=== PATIENT | female | born 1955 | race Caucasian/White ===

== ENCOUNTER 2016-05-11 10:54 | Inpatient (IN) | payer OTHER, MEDICARE ==
[~2016-05-11] VITALS: Ht 162.6 cm; Wt 64.9 kg
[2016-05-11] MEDS ORDERED: BUSP5TAB PO (14:42)
[2016-05-11] MEDS ORDERED: ATOR1TAB18 PO (14:42)
[2016-05-11] MEDS ORDERED: CLOP75TA PO (14:43)
[2016-05-11] MEDS ORDERED: CITA20TA4 PO (14:43)
[2016-05-11] MEDS ORDERED: HYDR25TA5 PO (14:45)
[2016-05-11] MEDS ORDERED: META48.54 PO (14:45)
[2016-05-11] MEDS ORDERED: MIRA33504 PO (14:45)
[2016-05-11] MEDS ORDERED: METO50TA PO (14:45)
[2016-05-11] MEDS ORDERED: PANT40TA3 PO (14:45)
[2016-05-15] MEDS ORDERED: METOPROLOL TARTRATE 25 MG TAB PO PRN (06:00)
[2016-05-15] MEDS ORDERED: LACTATED RINGER'S 1000 ML IV SCH (06:00)
[2016-05-15] MEDS ORDERED: INSULIN HUMAN REGULAR 1,000 UNITS/10 ML VIAL SQ PRN (06:00)
[2016-05-15] MEDS ORDERED: ceFAZolin 1,000 MG/NS 100 ML IV SCH ×2 (06:00)
[2016-05-15] MEDS ORDERED: SODIUM CHLORID 0.9% 500 ML IV SCH (06:00)
[2016-05-15 06:19] LABS: AUTOMATED NEUTROPHIL # 6.5 TH/MM3 (1.8-7.7); BASOPHIL % 0.5 % (0.0-2.0); EOSINOPHIL # 0.1 TH/MM3 (0-0.4); EOSINOPHIL % 1.2 % (0.0-4.0); HEMATOCRIT 40.3 % (35.0-46.0); HEMO FLAGS DIFF FINAL; LYMPH % 21.9 % (9.0-44.0); LYMPHOCYTE # 2.1 TH/MM3 (1.0-4.8); MEAN CELL VOLUME 92.7 FL (80.0-100.0); MEAN CORPUSCULAR HGB CONC 34.5 % (32.0-36.0); MONO % 8.1 % (0.0-8.0); NEUT % 68.3 % (16.0-70.0); PLATELET COUNT 274 TH/MM3 (150-450); RED BLOOD COUNT 4.34 MIL/MM3 (4.00-5.30); RED CELL DISTRIBUTION WIDTH 14.2 % (11.6-17.2); WHITE BLOOD COUNT 9.5 TH/MM3 (4.0-11.0)
[2016-05-15 06:25] VITALS: BP 147/61; PULSE 56; RESP 20; TEMP 98.1; O2SAT 98
[2016-05-15 06:31] LABS: BICARBONATE 31.1 MEQ/L (21.0-32.0); POTASSIUM 3.5 MEQ/L (3.5-5.1)
[2016-05-15 06:46] LABS: APTT (PATIENT) 26.7 SEC (24.3-30.1); INTERNATIONAL NORMALIZED RATIO 0.9 RATIO
[2016-05-15] MEDS ORDERED: HEPARIN SODIUM - IV 10,000 UNITS/10 ML VIAL ONE (07:42)
[2016-05-15] MEDS ORDERED: HEPARIN SODIUM - SQ 10,000 UNITS/ML VIAL ONE (07:42)
[2016-05-15] MEDS ORDERED: PROTAMINE SULFATE 50 MG/5 ML VIAL ONE (07:42)
[2016-05-15] MEDS ORDERED: VANCOMYCIN HCL 1000 MG VIAL ONE (07:51)
[2016-05-15] MEDS ORDERED: SODIUM CHLOR 0.9% 250 ML INJ 250 ML ONE (07:51)
[2016-05-15] MEDS ORDERED: VANCOMYCIN 500 MG VIAL ONE (07:51)
[2016-05-15] MEDS ORDERED: MIDAZOLAM HCL 2 MG/2 ML VIAL ONE (08:19)
[2016-05-15] MEDS ORDERED: ACETAMINOPHEN 1000 MG/100 ML VIAL IV ONE (08:19)
[2016-05-15] MEDS ORDERED: FAMOTIDINE 20 MG/2 ML VIAL ONE (08:19)
[2016-05-15] MEDS ORDERED: fentaNYL CITRATE 250 MCG/5 ML AMP ONE (08:19)
[2016-05-15] MEDS ORDERED: DICLOFENAC SODIUM 37.5 MG/ML VIAL IV PUSH ONE (08:20)
[2016-05-15] MEDS ORDERED: DEXAMETHASONE SOD PHOS 4 MG/ML VIAL ONE (08:20)
[2016-05-15] MEDS ORDERED: VANCOMYCIN HCL 1000 MG ON-CALL/NS 250 ML IV SCH ×2 (08:30)
[2016-05-15] MEDS ORDERED: HEPARIN SODIUM - SQ 10,000 UNITS/ML VIAL OTHER ONE (09:12)
[2016-05-15] MEDS ORDERED: BUPIVACAINE/EPINEPHRINE 0.5% PF 30 ML VIAL INFIL ONE (09:12)
[2016-05-15] MEDS ORDERED: DO NOT ADM ANY ANTICOAGULANT DRUGS XX PRN (12:00)
[2016-05-15] MEDS ORDERED: *morphine SULFATE 8 MG/ML PERIprocedure ONLY ONE (12:16)
[2016-05-15] MEDS ORDERED: MORPHINE SULFATE 8 MG/ML INJ IV PUSH ONE (12:16)
[2016-05-15] MEDS ORDERED: ONDANSETRON HCL 4 MG/2 ML VIAL IV PUSH ONE ×2 (12:20→14:40)
[2016-05-15] MEDS ORDERED: *ONDANSETRON 4 MG VIAL PERIprocedural Use ONLY ONE (12:20)
[2016-05-15] MEDS ORDERED: MORPHINE SULFATE 4 MG/ML INJ IV PRN (12:30)
[2016-05-15] MEDS ORDERED: ACETAMINOPHEN 325 MG TAB PO PRN (12:30)
[2016-05-15] MEDS ORDERED: ONDANSETRON HCL 4 MG/2 ML VIAL IV PUSH PRN (12:30)
[2016-05-15] MEDS ORDERED: SODIUM CHLORIDE 0.9% FLUSH 5 ML FLUSH IV FLUSH PRN (12:30)
--- NOTE | 2016-05-15 13:58 | EKG ---
Date Performed: 05/15/2016 Time Performed: 06:46:23 PTAGE: 60 years EKG: SINUS BRADYCARDIA BORDERLINE ECG NO PREVIOUS TRACING DOCTOR: Oliver Vallecillo Interpretating Date/Time 05/15/2016 13:55:55
[2016-05-15] MEDS ORDERED: PHENYLEPH/NS 1000 MCG/10 ML SYR IV ONE (14:40)
[2016-05-15] MEDS ORDERED: ePHEDrine/NS 50 MG/5 ML SYR IV ONE (14:40)
[2016-05-15] MEDS ORDERED: LACTATED RINGER'S 1000 ML INJ 1,000 ML IV ONE (14:40)
[2016-05-15] MEDS ORDERED: NEOSTIGMINE 3 MG/3 ML SYR IV ONE (14:40)
[2016-05-15] MEDS ORDERED: PROPOFOL 200 MG/20 ML AMP IV ONE (14:40)
[2016-05-15] MEDS ORDERED: ACETAMINOPHEN/HYDROcodone 325 MG/5 MG TAB PO PRN (15:30)
[2016-05-15 20:00] VITALS: BP 128/60; PULSE 68; RESP 16; TEMP 96.4; O2SAT 95
[2016-05-15] MEDS: busPIRone HCL 5 MG TAB PO SCH (20:10)
[2016-05-15] MEDS: METOPROLOL TARTRATE 50 MG TAB PO SCH (20:10)
[2016-05-15] MEDS: SODIUM CHLORIDE 0.9% FLUSH 5 ML FLUSH IV FLUSH SCH (20:11)
[2016-05-15] MEDS ORDERED: ATORVASTATIN 80 MG TAB PO SCH (21:00)
[2016-05-16] VITALS: BP 104/54; PULSE 58; RESP 16; TEMP 96.9; O2SAT 94
[2016-05-16 04:00] VITALS: BP 109/60; PULSE 62; RESP 16; TEMP 96.9; O2SAT 98
[2016-05-16 08:00] VITALS: BP 111/57; PULSE 64; RESP 16; TEMP 96.8; O2SAT 97
--- NOTE | 2016-05-16 08:17 | MP ---
cc: MITRA MADERA M.D., JAMES DATE OF SURGERY May 15, 2016 PREOPERATIVE DIAGNOSIS Severely disabling right lower extremity ischemia. POSTOPERATIVE DIAGNOSIS Severely disabling right lower extremity ischemia. PROCEDURE Right femoral-popliteal bypass with intraoperative arteriogram. SURGEON Gael Mccoy MD UTILIZATION MANAGEMENT UM NURSE SEAN Seaman ANESTHESIA General endotracheal/local. DESCRIPTION OF THE OPERATIVE PROCEDURE With the patient in the supine position, general endotracheal anesthesia was induced, the abdomen, right groin and entire right lower extremity prepped with Betadine and draped in a sterile fashion. One gram of a vancomycin was administered intravenously. Following a protocol time-out, the skin and subcutaneous tissue at the proposed incisional areas were preemptively infiltrated with 0.5% Marcaine with epinephrine. A vertical, approximately 8-cm incision was performed along the distal medial thigh. The greater saphenous vein was exposed and a short segment mobilized. The vein appeared to be at most 3-mm in diameter and I felt would prove difficult and inadequate for autogenous conduit use. Therefore PTFE graft was chosen. The incision was deepened into the proximal popliteal space and the popliteal artery circumferentially mobilized from the abductor canal distally, encircled with double-loop vessel loops. The popliteal artery was cannulated with an 18-gauge butterfly needle. Diluted contrast was injected in conjunction with digital C-arm fluoroscopic imaging. This confirmed a widely patent above and below-knee popliteal and runoff vessels. An oblique, hockey-stick shaped 5-cm incision was performed within the right groin region. The common superficial and profunda femoral arteries were circumferentially mobilized. The patient was systemically heparinized with 5000 units. The popliteal artery was occluded proximally and distally with Yasargil clips and a vertical 2-cm arteriotomy performed along its anteromedial surface. A 6-mm Propaten reinforced graft was spatulated on end and anastomosed end-to-side to the popliteal arteriotomy with continuous 6-0 Prolene. The graft was tunneled sub-sartorially to the femoral exposure site and filled with heparinized saline. The common superficial and profunda femoral arteries were occluded with double loop vessel loops. A vertical 2-cm arteriotomy was performed along the anterior surface of the distal common femoral. The graft was spatulated on end, anastomosed end-to-side to the common femoral arteriotomy with continuous 6-0 Prolene. The occluding Yasargil clips were removed from the popliteal artery and double-loop vessel loops from the femoral, reestablishing pulsatile flow within the [place] profunda as well as into the PTFE graft. Doppler signal was significantly augmented distal to the popliteal anastomosis. The heparin was reversed with 20 mg of protamine and strict hemostasis achieved. The popliteal and femoral exposure incisions were closed with three separate deep layers of continuous 4-0 Monocryl. The skin was reapproximated with continuous subcuticular 5-0 Monocryl, reinforced with Steri-Strips and covered with sterile gauze. At the conclusion of the procedure, instrument, needle and sponge counts were correct x 2. Right dorsalis pedis pulse was easily palpable. The patient returned to the recovery room in stable condition having tolerated the procedure well. MD SIRI Norwood/CRISTOFER /5:28 PM /8:04 AM
[2016-05-16] MEDS: METOPROLOL TARTRATE 50 MG TAB PO SCH (08:20)
[2016-05-16] MEDS: busPIRone HCL 5 MG TAB PO SCH (08:20)
[2016-05-16] MEDS: SODIUM CHLORIDE 0.9% FLUSH 5 ML FLUSH IV FLUSH SCH (08:22)
[2016-05-16] MEDS ORDERED: PSYLLIUM FIBER SF/GF 6 GM POWD PKT PO SCH (09:00)
[2016-05-16] MEDS ORDERED: CITALOPRAM HYDROBROMIDE 20 MG TAB PO SCH (09:00)
[2016-05-16] MEDS ORDERED: HYDROCHLOROTHIAZIDE 25 MG TAB PO SCH (09:00)
[2016-05-16] MEDS ORDERED: POLYETHYLENE GLYCOL 17 GM PKG PO SCH (09:00)
[2016-05-16] MEDS ORDERED: PANTOPRAZOLE SOD 40 MG DELAYED RELEASE TAB PO SCH (09:00)
[2016-05-16] MEDS ORDERED: CLOPIDOGREL 75 MG TAB PO SCH (09:00)
[2016-05-16 11:07] VITALS: O2SAT 96
[2016-05-16 12:00] VITALS: BP 116/53; PULSE 59; RESP 16; TEMP 97.5; O2SAT 92
== END 2016-05-16 13:47 | disposition home or self-care (01) | DRG 253 ==
LOC: HSDI 05-15 05:32 → EDSTATUS 05-15 08:30 → N06A 05-15 17:52
PROVIDERS: ADMIT Surgery Vascular Surgery; ATTEND Surgery Vascular Surgery
PROC: 041K0JL Bypass Right Femoral Artery to Popliteal Artery with Synthetic Substitute, Open Approach (ICD-10-PCS; principal; 2016-05-15 08:22)
DX: I70.211 Atherosclerosis of native arteries of extremities with intermittent claudication, right leg (principal); I70.92 Chronic total occlusion of artery of the extremities; I69.354 Hemiplegia and hemiparesis following cerebral infarction affecting left non-dominant side; I10 Essential (primary) hypertension; F17.200 Nicotine dependence, unspecified, uncomplicated; K21.9 Gastro-esophageal reflux disease without esophagitis
CPT/HCPCS: 80048; 85025; 85610; 85730; 86850; 86900; 86901; 93005; C1757; C1768; J0131; J1100; J1130; J1644; J2250; J2270; J2370; J2405; J2710; J2720; J3010; J3370; J7050; J7120

== ENCOUNTER 2016-06-20 13:23 | Inpatient (IN) | payer OTHER, MEDICARE ==
[~2016-06-20] VITALS: Ht 162.6 cm; Wt 65.6 kg
[~2016-06-20 13:23] MED LIST: ATOR1TAB18 PO; BUSP5TAB PO; CITA20TA4 PO; CLOP75TA PO; HYDR25TA5 PO; META48.54 PO; METO50TA PO; MIRA33504 PO; PANT40TA3 PO
[2016-07-03 09:50] VITALS: BP 128/62; PULSE 63; RESP 20; TEMP 98.5; O2SAT 97
[2016-07-03] MEDS ORDERED: HEPARIN SODIUM - SQ 10,000 UNITS/ML VIAL ONE (10:00)
[2016-07-03] MEDS ORDERED: ceFAZolin INJ 1,000 MG VIAL ONE (10:01)
[2016-07-03] MEDS ORDERED: BUPIVACAINE/EPINEPHRINE 0.5% PF 30 ML VIAL ONE ×2 (10:01→12:30)
[2016-07-03] MEDS ORDERED: HEPARIN SODIUM - IV 10,000 UNITS/10 ML VIAL ONE (10:01)
[2016-07-03] MEDS ORDERED: PROTAMINE SULFATE 50 MG/5 ML VIAL ONE (10:01)
[2016-07-03] MEDS ORDERED: SODIUM CHLOR 0.9% 250 ML INJ 250 ML ONE (10:51)
[2016-07-03 11:03] LABS: AUTOMATED NEUTROPHIL # 6.1 TH/MM3 (1.8-7.7); BASOPHIL % 0.4 % (0.0-2.0); EOSINOPHIL # 0.1 TH/MM3 (0-0.4); EOSINOPHIL % 0.7 % (0.0-4.0); HEMATOCRIT 39.2 % (35.0-46.0); HEMO FLAGS DIFF FINAL; LYMPH % 25.6 % (9.0-44.0); LYMPHOCYTE # 2.4 TH/MM3 (1.0-4.8); MEAN CELL VOLUME 93.8 FL (80.0-100.0); MEAN CORPUSCULAR HEMOGLOBIN 32.6 PG (27.0-34.0); MEAN CORPUSCULAR HGB CONC 34.7 % (32.0-36.0); NEUT % 66.3 % (16.0-70.0); PLATELET COUNT 244 TH/MM3 (150-450); RED BLOOD COUNT 4.18 MIL/MM3 (4.00-5.30); RED CELL DISTRIBUTION WIDTH 14.1 % (11.6-17.2); WHITE BLOOD COUNT 9.2 TH/MM3 (4.0-11.0)
[2016-07-03] MEDS ORDERED: VANCOMYCIN HCL 1000 MG VIAL ONE (11:08)
[2016-07-03 11:11] LABS: APTT (PATIENT) 26.5 SEC (24.3-30.1); INTERNATIONAL NORMALIZED RATIO 0.9 RATIO; PROTHROMBIN TIME - PATIENT 10.2 SEC (9.8-11.6)
[2016-07-03 11:22] LABS: BICARBONATE 29.8 MEQ/L (21.0-32.0); POTASSIUM 4.2 MEQ/L (3.5-5.1)
[2016-07-03] MEDS ORDERED: ONDANSETRON HCL 4 MG/2 ML VIAL IV PUSH ONE (11:33)
[2016-07-03] MEDS ORDERED: PROPOFOL 200 MG/20 ML AMP IV ONE (11:33)
[2016-07-03] MEDS ORDERED: NORMOSOL R INJ 1,000 ML IV ONE (11:33)
[2016-07-03] MEDS ORDERED: ePHEDrine/NS 25 MG/5 ML SYR IV ONE (11:33)
[2016-07-03] MEDS ORDERED: NEOSTIGMINE 3 MG/3 ML SYR IV ONE (11:33)
[2016-07-03] MEDS ORDERED: fentaNYL CITRATE 250 MCG/5 ML AMP ONE (11:45)
[2016-07-03] MEDS ORDERED: DO NOT ADM ANY ANTICOAGULANT DRUGS XX PRN (14:47)
[2016-07-03] MEDS ORDERED: CLOPIDOGREL 75 MG TAB ONE (15:23)
[2016-07-03] MEDS ORDERED: POTASSIUM CHLOR 20 MEQ 100 ML x 2 BAGS IV PRN (15:30)
[2016-07-03] MEDS ORDERED: MAGNESIUM SULFATE 1 GM/100 ML IV PRN (15:30)
[2016-07-03] MEDS ORDERED: CLOPIDOGREL 75 MG TAB PO ONE (15:30)
[2016-07-03] MEDS ORDERED: SODIUM CHLORIDE 0.9% FLUSH 5 ML FLUSH IV FLUSH PRN (15:30)
[2016-07-03] MEDS ORDERED: ONDANSETRON HCL 4 MG/2 ML VIAL IV PUSH PRN (15:30)
[2016-07-03] MEDS ORDERED: MORPHINE SULFATE 4 MG/ML INJ IV PRN (15:30)
[2016-07-03] MEDS ORDERED: ACETAMINOPHEN 325 MG TAB PO PRN (15:30)
[2016-07-03] MEDS ORDERED: POTASSIUM CHLOR 20 MEQ/100 ML x 1 BAG IV PRN (15:30)
[2016-07-03] MEDS ORDERED: ACETAMINOPHEN/HYDROcodone 325 MG/5 MG TAB PO PRN (15:30)
[2016-07-03] MEDS ORDERED: POTASSIUM PHOSPHATE 21 MMOL/NS 250 ML IV PRN ×2 (15:30)
[2016-07-03] MEDS ORDERED: ASPIRIN EC 81 MG TABEC ONE (15:50)
[2016-07-03] MEDS: ASPIRIN EC 81 MG TABEC PO SCH (15:50)
[2016-07-03 16:00] VITALS: PULSE 59
[2016-07-03 17:00] VITALS: PULSE 54
[2016-07-03 18:00] VITALS: PULSE 56
[2016-07-03 20:00] VITALS: BP 135/67; PULSE 62; RESP 16; TEMP 97.5; O2SAT 99
[2016-07-03] MEDS: busPIRone HCL 5 MG TAB PO SCH (20:52)
[2016-07-03] MEDS: METOPROLOL TARTRATE 50 MG TAB PO SCH (20:52)
[2016-07-03] MEDS: SODIUM CHLORIDE 0.9% FLUSH 5 ML FLUSH IV FLUSH SCH (20:52)
[2016-07-03] MEDS ORDERED: ATORVASTATIN 80 MG TAB PO SCH (21:00)
[2016-07-03 22:00] VITALS: PULSE 58
[2016-07-04] VITALS (11 sets, daily range): BP systolic 110–132; BP diastolic 44–63; PULSE 55–73; RESP 16–18; TEMP 97.4–97.8; O2SAT 92–95
--- NOTE | 2016-07-04 07:37 | MP ---
cc: TONG MCCOY M.D. DATE OF SURGERY 07/03/2016 PREOPERATIVE DIAGNOSIS Disabling left lower extremity ischemia. POSTOPERATIVE DIAGNOSIS Disabling left lower extremity ischemia. OPERATIVE PROCEDURE Left femoral-popliteal bypass. SURGEON Tong Mccoy MD GENERATOR OPERATOR STRAIGHT BEVEL GEAR SEAN Seaman ANESTHESIA General endotracheal/local. DESCRIPTION OF PROCEDURE With the patient in the supine position, general endotracheal anesthesia was induced, the lower abdomen, left groin and entire left lower extremity were thoroughly prepped with Betadine and draped in a sterile fashion. One gram of Ancef was administered intravenously and following a protocol time-out, the skin and subcutaneous tissue along the distal medial thigh proposed incisional area was preemptively infiltrated with 0.5% Marcaine with epinephrine. A vertical incision was performed and the proximal popliteal space entered. The popliteal artery was circumferentially mobilized from the abductor canal several centimeters distally and encircled with double looped vessel loops. The skin and subcutaneous tissue within the left inguinal area was infiltrated 0.5% Marcaine with epinephrine. An oblique 3 cm incision was performed along Annie's lines within the inguinal skin crease. The common superficial and profunda femoral arteries were circumferentially mobilized and encircled with double loop vessel loops. The patient was systemically heparinized with 5000 units. The popliteal artery was occluded proximally and distally with double loop vessel loops and a vertical 2-cm arteriotomy performed along the anteromedial surface. A 6-mm reinforced Propaten graft was spatulated on end and anastomosed end-to-side to the popliteal arteriotomy with continuous 6-0 Prolene. The graft was tunneled subsartorially with an intra-tunneling device to the common femoral exposure site. The common, superficial, and profunda femoral arteries were occluded with double looped vessel loops. A vertical 2-cm arteriotomy was performed along the anterior surface of the mid common femoral. The graft lumen was filled with heparinized saline, spatulated on end and anastomosed end-to-side to the common femoral arteriotomy with continuous 6-0 Prolene. Prior to placement of the final sutures, the [place] arterial and graft lumens were appropriately flushed and the final sutures placed and tied and pulsatile flow established within the bypass graft as confirmed by significant augmentation of Doppler signal distal to the popliteal anastomosis. Heparin was reversed with 20 mg of protamine. Strict hemostasis was assured. Both incisions were closed with three separate deep layers of continuous 4-0 Monocryl. Skin was reapproximated with continuous subcuticular 5-0 Monocryl, reinforced with Steri-Strips and covered with sterile gauze. Instrument, needle, sponge count correct x2. No operative complications. At the conclusion of the procedure, the left dorsalis pedis pulse was easily palpable with robust biphasic Doppler flow. MD SIRI Norwood/NICOLA /7:04 PM /7:32 AM
[2016-07-04] MEDS ORDERED: CLOPIDOGREL 75 MG TAB PO SCH ×2 (09:00→14:00)
[2016-07-04] MEDS ORDERED: PANTOPRAZOLE SOD 40 MG DELAYED RELEASE TAB PO SCH (09:00)
[2016-07-04] MEDS ORDERED: HYDROCHLOROTHIAZIDE 25 MG TAB PO SCH (09:00)
[2016-07-04] MEDS ORDERED: CITALOPRAM HYDROBROMIDE 20 MG TAB PO SCH (09:00)
[2016-07-04] MEDS ORDERED: PSYLLIUM FIBER SF/GF 6 GM POWD PKT PO SCH (09:00)
[2016-07-04] MEDS ORDERED: POLYETHYLENE GLYCOL 17 GM PKG PO SCH (09:00)
[2016-07-04] MEDS: ASPIRIN EC 81 MG TABEC PO SCH (09:17)
[2016-07-04] MEDS: METOPROLOL TARTRATE 50 MG TAB PO SCH (09:17)
[2016-07-04] MEDS: busPIRone HCL 5 MG TAB PO SCH (09:18)
[2016-07-04] MEDS: SODIUM CHLORIDE 0.9% FLUSH 5 ML FLUSH IV FLUSH SCH (09:22)
--- NOTE | 2016-07-04 11:39 | EKG ---
Date Performed: 07/03/2016 Time Performed: 10:27:28 PTAGE: 60 years EKG: SINUS BRADYCARDIA BORDERLINE ECG PREVIOUS TRACING : 05/15/2016 06.46 DOCTOR: Antonio Chavis Interpretating Date/Time 07/04/2016 11:38:12
[2016-07-04] MEDS ORDERED: ASPI81TA11 PO (11:59)
== END 2016-07-04 13:22 | disposition home or self-care (01) | DRG 254 ==
LOC: HSDI 07-03 09:42 → HCIN 07-03 16:19
PROVIDERS: ADMIT Surgery Vascular Surgery; ATTEND Surgery Vascular Surgery
PROC: 041L0JL Bypass Left Femoral Artery to Popliteal Artery with Synthetic Substitute, Open Approach (ICD-10-PCS; principal; 2016-07-03 11:44)
DX: I73.9 Peripheral vascular disease, unspecified (principal); E78.00 Pure hypercholesterolemia, unspecified; Z87.11 Personal history of peptic ulcer disease; Z86.73 Personal history of transient ischemic attack (TIA), and cerebral infarction without residual deficits; H35.30 Unspecified macular degeneration
CPT/HCPCS: 80048; 85025; 85610; 85730; 86850; 86900; 86901; 93005; C1757; C1768; J0690; J1644; J2405; J2710; J2720; J3010; J3370; J7050